=== PATIENT | male | born 1935 ===

== ENCOUNTER 2018-01-31 10:35 | Emergency (ER) | payer MEDICARE ==
[2018-01-31 10:50] VITALS: RESP 16; TEMP 98.6; O2SAT 98
--- NOTE | 2018-01-31 11:28 | C.PDOC ---
History Of Present Illness 82 year old male presents to the ER with a complaint of right lateral ankle pain and swelling worsening over the past 1 month. Denies trauma, Hx of similar , fever, rash, weakness, or numbness. Time Seen by Provider: 01/31/18 11:16 Chief Complaint (Nursing): Abnormal Skin Integrity History Per: Patient History/Exam Limitations: no limitations Onset/Duration Of Symptoms: Days Current Symptoms Are (Timing): Still Present Location Of Injury: Right: Ankle Quality Of Symptoms: Painful, Swollen Recent travel outside of the [place]: No Past Medical History Reviewed: Historical Data, Nursing Documentation, Vital Signs Vital Signs: Last Vital Signs Temp 98.6 F 01/31/18 10:47 Pulse 74 01/31/18 13:43 Resp 16 01/31/18 13:43 BP 119/84 01/31/18 13:43 Pulse Ox 98 01/31/18 13:43 - Medical History PMH: Diabetes (controlled type 2), HTN, Hypercholesterolemia Family History: States: Unknown Family Hx - Social History Hx Tobacco Use: No Hx Alcohol Use: No Hx Substance Use: No - Immunization History Hx Tetanus Toxoid Vaccination: Yes Hx Influenza Vaccination: Yes Hx Pneumococcal Vaccination: Yes Review Of Systems Constitutional: Negative for: Fever, Chills Musculoskeletal: Positive for: Other (Ankle swelling and pain) Skin: Negative for: Rash Neurological: Negative for: Weakness, Numbness Physical Exam - Physical Exam Appears: Non-toxic Skin: Warm, Dry, No Rash Head: Atraumatic, Normacephalic Eye(s): bilateral: Normal Inspection Oral Mucosa: Moist Neck: Normal ROM, Supple Extremity: Normal ROM, Capillary Refill (<2 seconds), Other (Moderate swelling and tenderness to right lateral calf with mild erythema) Extremity: Bilateral: Atraumatic Pulses: Left Dorsalis Pedis: Normal, Right Dorsalis Pedis: Normal Neurological/Psych: Oriented x3, Normal Speech, Normal Motor, Normal Sensation Gait: Steady ED Course And Treatment O2 Sat by Pulse Oximetry: 98 (Room air) Pulse Ox Interpretation: Normal Medical Decision Making Medical Decision Making: Doppler ordered, which is negative for DVT. Physical exam may be indicative of a possible cellulitis On re-exam, the patient reports improvement of symptoms. Lungs are CTA, heart is RRR, abdomen is soft, non-tender and tolerating PO well. The patient is ambulatory in the ED with steady gait. Follow up with the medical doctor within 1-2 days without fail. return if worsened. Disposition - Disposition Referrals: Hattie Ricci DPM [Staff Provider] - Disposition: HOME/ ROUTINE Disposition Time: 13:25 Condition: GOOD Additional Instructions: Follow up with the [facility] within 1-2 days without fail. Return if worsened. 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 - Scribe Statement The provider has reviewed the documentation as recorded by the Scribcass Whitley All medical record entries made by the Kerrieibcass were at my direction and personally dictated by me. I have reviewed the chart and agree that the record accurately reflects my personal performance of the history, physical exam, medical decision making, and the department course for this patient. I have also personally directed, reviewed, and agree with the discharge instructions and disposition.
[2018-01-31 13:44] VITALS: BP 119/84; PULSE 74
--- NOTE | 2018-01-31 14:45 | RAD ---
Date of service: 01/31/2018 PROCEDURE: Radiographs of the right tibia and fibula. HISTORY: swell on the lateral tib/fib COMPARISON: None available TECHNIQUE: Frontal and lateral views obtained. FINDINGS: BONES: No fracture or destructive lesion. JOINT SPACES: Unremarkable. OTHER FINDINGS: None. IMPRESSION: Unremarkable radiographs of the right tibia and fibula.
== END 2018-01-31 13:43 | disposition home or self-care (01) ==
LOC: C.ER 10:35
DX: L03.115 Cellulitis of right lower limb (principal); E11.9 Type 2 diabetes mellitus without complications; E78.00 Pure hypercholesterolemia, unspecified; I10 Essential (primary) hypertension